=== PATIENT | male | born 1990 | race Caucasian/White ===

== ENCOUNTER 2016-12-27 01:44 | Emergency (ER) | payer SELFPAY ==
[~2016-12-27] VITALS: Ht 177.8 cm; Wt 84.0 kg
[~2016-12-27 01:44] MED LIST: CHLO.12%30 SSP; PENI500T PO; ULTR50TA PO
[2016-12-27 01:52] VITALS: BP 128/81; PULSE 74; RESP 18; TEMP 98.4; O2SAT 100
[2016-12-27 02:03] VITALS: BP 128/81; PULSE 74; RESP 18; TEMP 98.4; O2SAT 100
[2016-12-27 02:12] VITALS: O2SAT 98
[2016-12-27] MEDS ORDERED: SODIUM CHLOR 0.9% 1000 ML INJ 1,000 ML IV ONE (02:15)
[2016-12-27] MEDS ORDERED: DEXAMETHASONE SOD PHOS 20 MG/5 ML VIAL IV PUSH ONE (02:15)
[2016-12-27] MEDS ORDERED: SODIUM CHLORIDE 0.9% FLUSH 10 ML FLUSH IVF PRN (02:15)
--- NOTE | 2016-12-27 02:16 | PD ---
HPI Chief Complaint: ENT Complaint Time Seen by Provider: 02:04 Travel History International Travel<30 days: No Contact w/Intl Traveler<30days: No Traveled to known affect area: No History of Present Illness HPI Patient is a 26-year-old male who presents to emergency room with complaints of swollen lymph nodes, cough and congestion. Patient reports that 5 days ago, he as well as girlfriend were sick with the flu, reports that he had myalgias, fevers and chills. Patient reports that 5 days ago, he noticed that he had increased swollen lymph nodes to the right side of his neck. Patient reports that over the course of 5 days, the right-sided lymph nodes appear larger and patient reports pain with swallowing. Patient reports that he is able to eat and drink but reports that "it feels gritty when I swallow". Reports uncomfortable sensation to his neck. Patient also reports that he has also had a nonproductive cough for the past 5 days, he is a smoker. No recent travels/ trips. PFSH Past Medical History Diminished Hearing: No Tetanus Vaccination: Unknown Social History Alcohol Use: No Tobacco Use: Yes (1/2ppd) Substance Use: No Allergies-Medications (Allergen,Severity, Reaction): Coded Allergies: No Known Allergies (Unverified , 12/27/16) Reported Meds & Prescriptions Reported Meds & Active Scripts Active Medrol Dosepak (Methylprednisolone) 4 Mg Dspk 4 Mg PO DIRECTED Per Pharmacist direction Augmentin (Amoxicillin-Clavulanate) 875-125 mg Tab 875 Mg PO BID 10 Days not for use in CrCl <30 ml/min. Review of Systems General / Constitutional: No: Fever Eyes: No: Visual changes HENT: Positive: Sore Throat, No: Headaches Cardiovascular: No: Chest Pain or Discomfort Respiratory: Positive: Cough, Shortness of Breath Gastrointestinal: No: Abdominal Pain Genitourinary: No: Dysuria Musculoskeletal: No: Pain Skin: No Rash Neurologic: No: Weakness Psychiatric: No: Depression Endocrine: No: Polydipsia Hematologic/Lymphatic: No: Easy Bruising Physical Exam Narrative GENERAL: mild distress SKIN: Warm and dry, no signs of infection or cellulitis or rash HEAD: Atraumatic. Normocephalic. EYES: Pupils equal and round. No scleral icterus. No injection or drainage. ENT: No nasal bleeding or discharge. Mucous membranes pink and moist. NECK: Trachea midline. No JVD. Patient with bilateral cervical adenopathy with increased swelling to the right cervical lymph nodes, patient with swollen tonsils, right tonsil appears was swollen the left tonsil. Patient is talking in complete sentences, no drooling on exam, no airway compromise CARDIOVASCULAR: Regular rate and rhythm. No murmur appreciated. RESPIRATORY: No accessory muscle use. Patient with scattered wheezing throughout upper and lower lobes the lungs GASTROINTESTINAL: Abdomen soft, non-tender, nondistended. Hepatic and splenic margins not palpable. MUSCULOSKELETAL: No obvious deformities. No clubbing. No cyanosis. No edema. NEUROLOGICAL: Awake and alert. No obvious cranial nerve deficits. Motor grossly within normal limits. Normal speech. PSYCHIATRIC: Appropriate mood and affect; insight and judgment normal. Data Data Last Documented VS Vital Signs Date Time Temp Pulse Resp B/P Pulse Ox O2 Delivery O2 Flow Rate FiO2 12/27/16 03:43 98.6 75 19 130/80 98 12/27/16 02:12 Room Air Orders Complete Blood Count With Diff (12/27/16 02:04) Comprehensive Metabolic Panel (12/27/16 02:04) Monoscreen (12/27/16 02:04) Group A Rapid Strep Screen (12/27/16 02:04) Influenzae A/B Antigen (12/27/16 02:04) Chest, Pa & Lat (12/27/16 02:04) Ecg Monitoring (12/27/16 02:04) Iv Access Insert/Monitor (12/27/16 02:04) Oximetry (12/27/16 02:04) Sodium Chloride 0.9% Flush (Ns Flush) (12/27/16 02:15) Dexamethasone Inj (Decadron Inj) (12/27/16 02:15) Ct Soft Tiss Neck W Iv Cont (12/27/16 ) Sodium Chlor 0.9% 1000 Ml Inj (Ns 1000 M (12/27/16 02:15) Albuterol-Ipratropium Neb (Duoneb Neb) (12/27/16 02:15) Ampicillin-Sulbactam Inj (Unasyn Inj) (12/27/16 02:30) Ampicillin-Sulbactam Inj (Unasyn Inj) (12/27/16 02:30) Strep Culture (Group A) (12/27/16 02:10) Iohexol 350 Inj (Omnipaque 350 Inj) (12/27/16 03:20) Mandatory Outpatient Referral (12/27/16 04:27) Labs Laboratory Tests Test 12/27/16 02:10 White Blood Count 15.1 TH/MM3 Red Blood Count 4.82 MIL/MM3 Hemoglobin 14.3 GM/DL Hematocrit 43.2 % Mean Corpuscular Volume 89.7 FL Mean Corpuscular Hemoglobin 29.8 PG Mean Corpuscular Hemoglobin 33.2 % Concent Red Cell Distribution Width 12.6 % Platelet Count 377 TH/MM3 Mean Platelet Volume 8.3 FL Neutrophils (%) (Auto) 62.8 % Lymphocytes (%) (Auto) 26.3 % Monocytes (%) (Auto) 6.8 % Eosinophils (%) (Auto) 2.8 % Basophils (%) (Auto) 1.3 % Neutrophils # (Auto) 9.5 TH/MM3 Lymphocytes # (Auto) 4.0 TH/MM3 Monocytes # (Auto) 1.0 TH/MM3 Eosinophils # (Auto) 0.4 TH/MM3 Basophils # (Auto) 0.2 TH/MM3 CBC Comment DIFF FINAL Differential Comment Sodium Level 143 MEQ/L Potassium Level 3.9 MEQ/L Chloride Level 105 MEQ/L Carbon Dioxide Level 27.4 MEQ/L Anion Gap 11 MEQ/L Blood Urea Nitrogen 12 MG/DL Creatinine 1.00 MG/DL Estimat Glomerular Filtration 91 ML/MIN Rate Random Glucose 95 MG/DL Calcium Level 9.4 MG/DL Total Bilirubin 0.4 MG/DL Aspartate Amino Transf 23 U/L (AST/SGOT) Alanine Aminotransferase 69 U/L (ALT/SGPT) Alkaline Phosphatase 98 U/L Total Protein 8.1 GM/DL Albumin 3.8 GM/DL MDM Medical Decision Making Medical Screen Exam Complete: Yes Emergency Medical Condition: Yes Interpretation(s) Vital Signs Date Time Temp Pulse Resp B/P Pulse Ox O2 Delivery O2 Flow Rate FiO2 12/27/16 02:12 98 Room Air 12/27/16 02:03 98.4 74 18 128/81 100 12/27/16 01:52 98.4 74 18 128/81 100 Differential Diagnosis Jaden's angina, strep pharyngitis, mononucleosis, influenza, peritonsillar abscess, retropharyngeal abscess, pneumonia Narrative Course Patient is a 26-year-old male who presents to emergency room with complaints of sore throat, swollen lymph nodes, cough, congestion, fevers for the past 5 days. Patient reports that his girlfriend is sick with similar symptoms, reports that he noticed increased lymph nodes for the 5 days and reports that lymph nodes to his right neck have been more swollen and has been more prominent in size. Patient reports that he is not having any problems with swallowing at this time, patient is able to swallow secretions and drink fluids but reports that "it just hurts to swallow.". Vital Signs Date Time Temp Pulse Resp B/P Pulse Ox O2 Delivery O2 Flow Rate FiO2 12/27/16 02:12 98 Room Air 12/27/16 02:03 98.4 74 18 128/81 100 12/27/16 01:52 98.4 74 18 128/81 100 Vital signs are stable at this time, patient is tolerating his own airway, no airway compromise, patient is not drooling, and has normal secretions. IV line established, will give dexamethasone, IV fluids, antibiotics. Labs as well as CT of soft tissue neck ordered to evaluate for possible peritonsillar versus retropharyngeal abscess versus Jaden angina wbc 15.1 Hemoglobin 14.3 Hematocrit 43.2 Platelets 377 Sodium 143 Chloride 105 Potassium 3.9 Carbon dioxide 27.4 BUN 12 Creatinine 1.0 Monoscreen pending Influenza negative Group A strep screen negative Last Impressions Chest X-Ray 12/27/16 0204 Signed Impressions: Service Date/Time: Tuesday, December 27, 2016 03:13 - CONCLUSION: No acute disease. Luis Nielson MD Neck CT 12/27/16 0000 Signed Impressions: Service Date/Time: Tuesday, December 27, 2016 03:01 - CONCLUSION: 1. There is some slight soft tissue thickening in the right oropharynx adjacent to the uvula. Direct inspection may be warranted. 2. Palpable abnormality corresponds to the lower parotid gland and just deep to the parotid gland is a prominent lymph node measuring 2.2 x 1.9 cm. Luis Nielson MD X-ray of the chest with no acute disease CT of his neck: Case reviewed with radiologist, ct shows some slight thickening to the right oropharynx, patient has an open and patent airway, there are prominent lymph nodes just deep to the parotid glands, both parotid glands are symmetrical in size and do not appear abnormal, differential would include infection versus malignancy I did review all labs and studies with patient in detail including his CT of his neck. A copy of the CT scan was given to patient as he understands that he will need to follow-up with the ENT as soon as possible. Hotel Room Attendant referral was placed for patient as he is currently in between insurance and if these prominent lymph nodes are secondary to malignancy, he will need for earliest follow-up. Patient is talking in full sentences, maintaining his airway and reports that he is feeling better at this time. I do not believe the patient has any airway compromise, I will treat patient for pharyngitis, patient will follow-up with cultures from today. Signs and symptoms of when to return to the emergency room was reviewed patient in detail. Diagnosis Primary Impression: Pharyngitis Qualified Code: J02.9 - Pharyngitis, unspecified etiology Additional Impressions: Swollen lymph nodes Bronchitis Referrals: Surjit Hansen MD Patient Instructions: General Instructions Departure Forms: Tests/Procedures, Work Release Enter return to work date: Dec 29, 2016 Additional Instructions: Please provide patient with a copy of his labwork at discharge Please follow-up with ENT as well as your primary care doctor as soon as possible Please follow-up with cultures from today Take all antibiotics as prescribed Return to emergency room if symptoms worsen or progress Scripts Albuterol 8.5 GM Inh (Proair Hfa 8.5 GM Inh)90 Mcg/Act Aer1 Puff INH Q4H PRN ( SHORTNESS OF BREATH) #1 INHALER Ref 0 108 mcg/actuation Prov:Lou Guzman DO 12/27/16 Methylprednisolone Dosepak (Medrol Dosepak)4 Mg Dspk4 Mg PO DIRECTED #1 DSPK Ref 0 Per Pharmacist direction Prov:Lou Guzman DO 12/27/16 Amoxicillin-Clavulanate (Augmentin)875-125 mg [id number] Mg PO BID 10 Days Ref 0 not for use in CrCl <30 ml/min. Prov:Lou Guzman DO 12/27/16 Disposition: 01 DISCHARGE HOME Condition: Stable Lou Guzman DO Dec 27, 2016 02:16
[2016-12-27] MEDS: RESP: ALBUTEROL 2.5 MG/IPRATROPIUM 0.5 MG NEB (SCH) INH (02:21)
[2016-12-27 02:26] LABS: AUTOMATED NEUTROPHIL # 9.5 TH/MM3 (1.8-7.7); BASOPHIL # 0.2 TH/MM3 (0-0.2); BASOPHIL % 1.3 % (0.0-2.0); EOSINOPHIL # 0.4 TH/MM3 (0-0.4); EOSINOPHIL % 2.8 % (0.0-4.0); HEMATOCRIT 43.2 % (39.0-51.0); HEMO FLAGS DIFF FINAL; LYMPH % 26.3 % (9.0-44.0); MEAN CELL VOLUME 89.7 FL (80.0-100.0); MEAN CORPUSCULAR HEMOGLOBIN 29.8 PG (27.0-34.0); MEAN CORPUSCULAR HGB CONC 33.2 % (32.0-36.0); MONO % 6.8 % (0.0-8.0); NEUT % 62.8 % (16.0-70.0); PLATELET COUNT 377 TH/MM3 (150-450); RED BLOOD COUNT 4.82 MIL/MM3 (4.50-5.90); RED CELL DISTRIBUTION WIDTH 12.6 % (11.6-17.2); WHITE BLOOD COUNT 15.1 TH/MM3 (4.0-11.0)
[2016-12-27] MEDS ORDERED: AMPICILLIN-SULBACTAM INJ 3 GM VIAL IM ONE (02:30)
[2016-12-27] MEDS ORDERED: AMPICILLIN-SULBACTAM INJ 3 GM in SODIUM CHLORIDE 0.9% INJ 100 ML IV ONE (02:30)
[2016-12-27 02:41] LABS: CHLORIDE 105 MEQ/L (98-107); POTASSIUM 3.9 MEQ/L (3.5-5.1); SODIUM (NA) 143 MEQ/L (136-145)
[2016-12-27 02:45] LABS: ANION GAP 11 MEQ/L (5-15); BICARBONATE 27.4 MEQ/L (21.0-32.0); BLOOD UREA NITROGEN 12 MG/DL (7-18)
[2016-12-27 02:48] LABS: ALT (GPT) 69 U/L (12-78); AST (GOT) 23 U/L (15-37); GLOMERULAR FILTRATION RATE 91 ML/MIN (>89)
[2016-12-27 02:49] LABS: TOTAL BILIRUBIN ADULT 0.4 MG/DL (0.2-1.0)
[2016-12-27 02:51] LABS: ALKALINE PHOSPHATASE 98 U/L (45-117)
[2016-12-27] MEDS ORDERED: IOHEXOL 350 MG/ML 10 ML VIAL (for RAD DIAG) IV ONE (03:20)
[2016-12-27 03:43] VITALS: BP 130/80; PULSE 75; RESP 19; TEMP 98.6; O2SAT 98
--- NOTE | 2016-12-27 04:02 | RADHPO ---
EXAM DATE/TIME: 12/27/2016 03:13 [facility] COMPARISON: No previous studies available for comparison. INDICATIONS : Cough MEDICAL HISTORY : None. SURGICAL HISTORY : None. ENCOUNTER: Initial ACUITY: 4 - 6 days PAIN SCORE: 5/10 LOCATION: Bilateral chest FINDINGS: PA and lateral views of the chest demonstrate the lungs to be symmetrically aerated without evidence of mass, infiltrate or effusion. The cardiomediastinal contours are unremarkable. Osseous structure s are intact. CONCLUSION: No acute disease. Luis Nielson MD on December 27, 2016 at 4:00 Board Certified Radiologist. This report was verified electronically.
--- NOTE | 2016-12-27 04:10 | RADHPO ---
EXAM DATE/TIME: 12/27/2016 03:01 [facility] COMPARISON: No previous studies available for comparison. INDICATIONS : Right neck swelling and pain for five days. Evaluate for abscess. IV CONTRAST: 75 cc Omnipaque 350 (iohexol) IV RADIATION DOSE: 12.75 CTDIvol (mGy) MEDICAL HISTORY : None SURGICAL HISTORY : None. ENCOUNTER: Initial ACUITY: 4 - 6 days PAIN SCALE: 5/10 LOCATION: Right neck TECHNIQUE: Volumetric scanning of the neck was performed. Using automated exposure control and adjustment of th e mA and/or kV according to patient size, radiation dose was kept as low as reasonably achievable to obtain optimal diagnostic quality images. FINDINGS: NASOPHARYNX: The nasopharyngeal airway has a normal configuration. No mucosal thickening or mass is seen. OROPHARYNX: There is some soft tissue thickening along the right neck adjacent to the uvula. There is a prominent lymph node just deep to the right parotid gland. This measures 2.2 x 1.9 cm. The tonsillar pillars are intact. The prevertebral soft tissues are not thickened. LARYNX: The supraglottic, glottic, and infraglottic structures are intact. PARAPHARYNGEAL: The parapharyngeal space is intact. SALIVARY GLANDS: The parotid and submandibular glands are intact. LYMPH NODES: Multiple scattered small lymph nodes. There is a prominent lymph node the patient feels a lump in the right neck.. THYROID: Homogeneous enhancement without evidence of nodule. BONES: Unremarkable. OTHER: Marker was placed on the right neck. This corresponds with the right lower parotid gland. There are s ome tiny hyperdense lesions bilaterally likely lymph nodes. No abscess seen. Just deep to the parotid glands are prominent lymph node measuring 2.2 x 1.9 cm. CONCLUSION: 1. There is some slight soft tissue thickening in the right oropharynx adjacent to the uvula. Direct inspection may be warranted. 2. Palpable abnormality corresponds to the lower parotid gland and just deep to the parotid gland is a prominent lymph node measuring 2.2 x 1.9 cm. Luis Nielson MD on December 27, 2016 at 4:01 Board Certified Radiologist. This report was verified electronically.
[2016-12-27] MEDS ORDERED: AUGM875T PO (04:35)
[2016-12-27] MEDS ORDERED: MEDR4PAK PO (04:35)
[2016-12-27] MEDS ORDERED: ALBUAER3 INH (04:40)
[2016-12-27 04:42] VITALS: BP 119/80; TEMP 98.8
== END 2016-12-27 04:56 | disposition home or self-care (01) ==
LOC: PHED 01:44
DX: J02.9 Acute pharyngitis, unspecified (principal); R59.0 Localized enlarged lymph nodes; J40 Bronchitis, not specified as acute or chronic; M79.1 Myalgia; R50.9 Fever, unspecified; F17.200 Nicotine dependence, unspecified, uncomplicated
CPT/HCPCS: 70491; 71020; 80053; 85025; 86308; 87081; 87804; 87880; 94640; 94664; 96361; 96365; 96375; 99284; J0295; J1100; J7030; Q9967